=== PATIENT | female | born 1995 | race Caucasian/White ===

== ENCOUNTER → 2020-03-07 | Outpatient (CLI) | payer OTHER ==
--- NOTE | 2020-03-07 13:57 | REP ---
REASON FOR EXAM: Dyspnea. PRIORS: None. COMPARISON: No priors. FINDINGS: The superior mediastinal structures are midline. The cardiac silhouette is unremarkable in size, shape, and position. The diaphragmatic surfaces of the lungs are regular, and the costophrenic angles are clear. The pulmonary cristina are clear. The imaged osseous structures are intact. IMPRESSION: There is no acute cardiopulmonary disease. Electronically Signed by Pedro Marcus DO 03/07/2020 02:05 P
== END ==
LOC: M RAD 11:43
PROVIDERS: ATTEND Physician Assistant
DX: R06.00 Dyspnea, unspecified (principal)

== ENCOUNTER → 2020-04-22 | Outpatient (CLI) | payer OTHER ==
[~2020-04-22] MED LIST: METHACHOLINE KIT (J7674) INH ONE
--- NOTE | 2020-04-22 10:18 | PFTRPT ---
Visit Date: 04/22/2020 Referring Doctor: FEDE Ledesma Marcus, M Height: 65.00 Inches Weight: 165.00 Lbs BSA: 1.82 Diagnosis: R06.00 Study of excellent technical quality. Under protocol, methacholine was administered. At a dose of 10 mg (63.75 CDUs), a 26% decline in the FEV1 was noted. PC of 4.91 is significant. Flow rates did return to baseline post bronchodilator administration. IMPRESSION: Positive methacholine challenge study. MTDD
== END ==
LOC: M CARPUL 09:31
PROVIDERS: ATTEND Physician Assistant
DX: R06.00 Dyspnea, unspecified (principal)
CPT/HCPCS: 94070; J7674